=== PATIENT | female | born 1975 | race Caucasian/White ===

== ENCOUNTER → 2016-11-04 | Outpatient (CLI) | payer BC | END | disposition home or self-care (01) | LOC: GMAJ 10:28 | PROVIDERS: ATTEND Family Medicine | DX: Z00.00 Encounter for general adult medical examination without abnormal findings (principal) ==

== ENCOUNTER → 2017-05-18 | Outpatient (CLI) | payer BC | END | disposition home or self-care (01) | LOC: GMAL 17:20 | PROVIDERS: ATTEND Family Medicine | DX: L03.319 Cellulitis of trunk, unspecified (principal) ==

== ENCOUNTER → 2017-05-28 | Outpatient (CLI) | payer BC | END | disposition home or self-care (01) | LOC: GMAL 12:41 | PROVIDERS: ATTEND Family Medicine | DX: E34.9 Endocrine disorder, unspecified (principal); R53.82 Chronic fatigue, unspecified ==

== ENCOUNTER → 2019-04-04 | Outpatient (CLI) | payer BC | LOC: GMAL 10:19 | PROVIDERS: ATTEND Family Medicine | DX: R53.82 Chronic fatigue, unspecified (principal) ==

== ENCOUNTER → 2019-04-07 | Outpatient (CLI) | payer BC ==
--- NOTE | 2019-04-07 15:31 | US ---
EXAM DESCRIPTION: Abdomen,Complete (accession [id number]), Bladder (accession [id number]): Ultrasound. CLINICAL HISTORY: ABDOMINAL PAIN COMPARISON: None Available. TECHNIQUE: Transabdominal scannin-dimensional and Doppler modes. FINDINGS: Gallbladder: Normal size with no intraluminal stones or sludge. Normal wall thickness 2.4 mm. No surrounding fluid. Nontender with transducer pressure. Common bile duct: Normal caliber 4.3 mm. Liver: Increased echogenicity of the liver. Long axis right lobe is 14.7 cm.. Pancreas: Normal echogenicity of the included segments. Pancreatic duct not seen.. Abdominal aorta: Normal caliber from the proximal segment to the distal bifurcation. IVC: visualized; normal caliber. Spleen normal echogenicity; long axis measurement is 9.9 cm. Right kidney: 10.5 cm long axis. Minimal cortical thinning with normal echogenicity. No hydronephrosis, no echogenic stones, no perirenal fluid. Left kidney: 9.8 cm long axis. Normal cortical thickness and echogenicity. No hydronephrosis, no echogenic stones, no perirenal edema The urinary bladder is visualized. Prevoid volume is 40.8 x 8.0 x 5.4 cm, 108.6 mL. Postvoid volume is 3.9 x 2.8 x 1.2 cm, 6.8 mL. Ureteral jets were not evaluated. IMPRESSION: 1. Minimal steatosis of the liver with normal size. Normal vascular flow and caliber of the ducts. Smooth capsule with no ascites. Pancreas and gallbladder unremarkable. Common bile duct not dilated. 2. Left kidney slightly small with normal cortical thickness and echogenicity. Right kidney normal size with minimal cortical thinning. Otherwise unremarkable. Normal caliber of the abdominal aorta and IVC. 3. Urinary bladder empties with micturition volume more than 100 mL. Electronically signed by: Shankar Frost MD 04/07/2019 3:29 PM CDT
== END ==
LOC: US 08:04
PROVIDERS: ATTEND Family Medicine
DX: R33.8 Other retention of urine (principal); K76.0 Fatty (change of) liver, not elsewhere classified

== ENCOUNTER → 2019-08-24 | Outpatient (CLI) | payer BC ==
--- NOTE | 2019-08-29 12:36 | MAM ---
EXAM DESCRIPTION: 3D Screening BILATERAL : Digital Mammography. CLINICAL HISTORY: 43 years Female SCREENING . No complaints or personal history of breast cancer. Remote family history of breast cancer. Menarche age 10. Childbirth age unknown. Hysterectomy age is approximately 36. No HRT. Lifetime risk of developing breast cancer (Tyrer-Cuzick model)(%): 7.7. COMPARISON: 2-D digital screening bilateral mammography 12 October 2011. TECHNIQUE: Bilateral CC and MLO projection full-field images, digital tomosynthesis mammographic technique. Bilateral digital 2-D full-field MLO images. CAD not available for tomosynthesis or 2-D images. FINDINGS: The breast parenchymal density pattern is: Heterogeneously dense breast tissue, which may obscure small masses. No skin thickening or nipple retraction. Bilateral solitary microcalcifications. Left axillary lymph nodes. Focal asymmetry at the 3:00 position of the left breast, posterior third, approximately 10 cm from the nipple. Prominent compared to the prior 2-D study. Not associated with microcalcifications. No new focal, stellate mass or density, focal asymmetry , and no suspicious microcalcifications right breast. IMPRESSION: BI-RADS CATEGORY: 0 - INCOMPLETE- Need additional imaging evaluation. FOLLOW-UP: Recall for additional imaging: Full-field LM images of the left breast 2-D and tomosynthesis technique. Directed left breast ultrasound region of interest. Written communication concerning the IMPRESSION and Follow-up, will be mailed to the patient and referring health care provider. Electronically signed by: Shankar Frost MD 08/29/2019 12:34 PM TABLEAU ANALYST
== END ==
LOC: MAMMO 11:30
PROVIDERS: ATTEND Family Medicine
DX: Z12.31 Encounter for screening mammogram for malignant neoplasm of breast (principal)

== ENCOUNTER → 2019-09-12 | Outpatient (CLI) | payer BC | LOC: LAB.O 08:55 | PROVIDERS: ATTEND Physician Assistant | DX: L29.9 Pruritus, unspecified (principal); L73.2 Hidradenitis suppurativa; Z79.899 Other long term (current) drug therapy ==

== ENCOUNTER → 2019-10-10 | Outpatient (CLI) | payer BC ==
--- NOTE | 2019-10-12 18:09 | US ---
EXAM DESCRIPTION: 3D Diagnostic, Bilateral (accession [id number]), Breast,Bilateral (accession [id number]): Ultrasound CLINICAL HISTORY: 44 yearsFemaleABNORMAL MAMMOGRAM focal asymmetry left breast. Lifetime risk of developing breast cancer (Tyrer-Cuzick model)(%): 7.7. COMPARISON: Bilateral screening digital breast tomosynthesis August 2019. TECHNIQUE: Bilateral LM projection full-field images, digital tomosynthesis technique. Bilateral 2-D digital full-field images: LM and CC projections. CAD available for 2-D images.. Transcutaneous scanning of the bilateral breasts. utilizing sanon-scale and Doppler modes. Scanning performed by the gaming cage worker and Dr. Frost. FINDINGS: The breast parenchymal density pattern is: Heterogeneously dense breast tissue, which may obscure small masses. No skin thickening or nipple retraction bilateral axillary lymph nodes. Mass density or masses at the 3:00 position of the left breast 10 cm from the nipple, similar to abnormalities seen on the screening examination. Focal asymmetry in the 9:30 to 12:00 position of the right breast approximately 6 cm from the nipple. No suspicious microcalcifications bilaterally. Ultrasound: Scanning of the right breast. Heterogeneous fibroglandular and fatty tissues with a fibroglandular tissue predominance. Focal areas of fibroglandular tissues. No dominant solid mass, no distinct cyst, no parenchymal edema, no large microcalcifications. No overlying skin changes. Left breast: Mostly fibroglandular tissues with minimal fatty tissues. At the 3:00 position 8 cm from the nipple, is a anechoic oval-shaped mass with circumscribed margins and thin barnett, posterior acoustic enhancement and wider than tall orientation consistent with a cyst. Dimensions are 5.5 x 4.8 mm and nonvascular. Focal fibroids are tissues around this cyst. No dominant solid mass or large calcifications. IMPRESSION: Benign exam. BIRAD CATEGORY: 2 BENIGN FINDINGS. RECOMMENDATIONS: FOLLOW UP: Return to routine digital bilateral mammographic screening, one year interval from August 2019. Written communication explaining the IMPRESSION and follow-up, will be mailed to the patient and referring health care provider. The FINDINGS and the FOLLOW-UP plan were reviewed in person with the patient after the examination. According to the [employer], yearly mammograms are recommended starting at age 40 and continuing as long as a woman is in good health. Any breast change noted on a breast self-exam should be reported promptly to the patient's healthcare provider. Breast MRI is recommended for women with an approximately 20-25% or greater lifetime risk of breast cancer, including women with a strong family history of breast or ovarian cancer and women who have been treated for Hodgkin's disease. A negative mammographic report should not delay tissue diagnosis in patients with significant clinical history or physical findings. Extremely dense breast tissue limits the sensitivity of digital mammography. Electronically signed by: Shankar Frost MD 10/12/2019 6:08 PM [facility]
== END ==
LOC: MAMMO 11:05
PROVIDERS: ATTEND Family Medicine
DX: R92.8 Other abnormal and inconclusive findings on diagnostic imaging of breast (principal)
CPT/HCPCS: 76641; 77066; G0279

== ENCOUNTER 2020-01-25 05:23 | Day surgery (SDC) | payer BC ==
[2020-01-25] MEDS ORDERED: LACTATED RINGERS 1,000 ML ONE (06:55)
[2020-01-25] MEDS ORDERED: ONABOTULINUMTOXINA 50 UNIT IM ONE (07:00)
[2020-01-25] MEDS ORDERED: LIDOCAINE 1% 10 ML VIAL INJ ONE (07:00)
[2020-01-25] MEDS ORDERED: PROPOFOL 200 MG/20 ML VIAL IV ONE (07:00)
[2020-01-25] MEDS ORDERED: SODIUM CHLORIDE 0.9% 10 ML VIAL ONE (10:17)
[2020-01-25] MEDS ORDERED: MIDAZOLAM INJ 2 MG/2 ML VIAL ONE (11:23)
[2020-01-25] MEDS ORDERED: KETAMINE HCL 100 MG/ML VIAL ONE (11:23)
[2020-01-25 12:27] VITALS: BP 111/82; TEMP 97; O2SAT 98
--- NOTE | 2020-02-21 15:54 | OP ---
DATE OF PROCEDURE: 01/25/20 PREOPERATIVE DIAGNOSIS: 1. Chronic anal fissure with pain. POSTOPERATIVE DIAGNOSIS: 1. Chronic anal fissure with pain. PROCEDURE: 1. Botox for denervation of internal sphincter. SURGEON: Momo Gregory MD. PROCEDURE: In lithotomy position, general anesthesia was induced. She was prepped and draped in sterile fashion. Digital rectal exam was done. The fissure was seen posteriorly. No masses were identified upon palpation. The intersphincteric groove was identified. 50 units of Botox were used overall, 25 in each side in this position in the 8 and 5 o'clock positions. Massaged on the internal sphincter. No complications or hematoma were seen. Digital rectal exam was otherwise normal with no masses, no other abnormalities. She tolerated the procedure, was then awakened and taken to Recovery to be discharged. #[id number] MTDD
== END 2020-01-25 12:25 | disposition home or self-care (01) ==
LOC: AMB 05:23
PROVIDERS: ATTEND Surgery
DX: K60.2 Anal fissure, unspecified (principal); F17.200 Nicotine dependence, unspecified, uncomplicated; F41.9 Anxiety disorder, unspecified; F32.9 Major depressive disorder, single episode, unspecified; E78.00 Pure hypercholesterolemia, unspecified; Z79.899 Other long term (current) drug therapy
CPT/HCPCS: 00902; 46505; J2250; J3490; J7120

== ENCOUNTER → 2020-09-04 | Outpatient (CLI) | payer OTHER | LOC: GMAL 13:00 | PROVIDERS: ATTEND Family Medicine | DX: M06.9 Rheumatoid arthritis, unspecified (principal) ==

== ENCOUNTER → 2020-10-03 | Outpatient (CLI) | payer OTHER | LOC: GMAL 11:02 | PROVIDERS: ATTEND Family Medicine | DX: D51.9 Vitamin B12 deficiency anemia, unspecified (principal); R53.82 Chronic fatigue, unspecified; E55.9 Vitamin D deficiency, unspecified; Z79.899 Other long term (current) drug therapy ==